=== PATIENT | female | born 1965 | race Caucasian/White ===

== ENCOUNTER 2019-02-07 06:34 | Emergency (ER) | payer MEDICARE, OTHER, SELFPAY ==
[2019-02-07] VITALS (7 sets, daily range): BP systolic 115–136; BP diastolic 57–96; PULSE 83–100; RESP 18–20; TEMP 36.6; O2SAT 96–100; BMI 32.9
--- NOTE | 2019-02-07 06:45 | XR_ITS ---
XR chest AP HISTORY: Posttraumatic pain, contusion/radiation ITS.REASON: fall ORDERING PHYSICIAN: Michael Mckeon MD PATIENT AGE: 53 years COMPARISON: 02/02/2019 FINDINGS: The cardiomediastinal silhouette and pulmonary vascularity are within normal limits. The lungs are clear without infiltrates, suspicious nodules, or pleural effusions. No acute bony abnormalities. IMPRESSION: Negative chest, no acute finding
--- NOTE | 2019-02-07 06:45 | XR_ITS ---
XR pelvis 1-2V HISTORY: Fall with injury and pain ITS.REASON: fall ORDERING PHYSICIAN: Michael Mckeon MD PATIENT AGE: 53 years Comparison: None FINDINGS: No fracture or dislocation is evident. No significant degenerative change. No lytic or blastic change. The SI joints have an unremarkable appearance. Unremarkable soft tissues. There is some heterotopic ossification along the greater trochanter on the right IMPRESSION: No acute finding
--- NOTE | 2019-02-07 06:45 | CT_ITS ---
CT head/brain wo con HISTORY: Posttraumatic pain, head injury with pain, contusion or hematoma with abrasion ITS.REASON: fall ORDERING PHYSICIAN: Michael Mckeon MD PATIENT AGE: 53 years COMPARISON: 02/16/2016 TECHNIQUE: Axial images obtained without contrast. Brain and bone windows reviewed. All CT scans at the facility use one or more dose reduction, viz: automated exposure control, ma/kV adjustment per patient size (including targeted exams where dose is matched to indication, i.e. head), or iterative reconstruction technique. FINDINGS: No midline shift, mass effect, intracranial hemorrhage, hydrocephalus, or extra-axial fluid collection is evident. Mild mucosal thickening involves the maxillary sinuses. Small amount of subcutaneous gas is present in the left vertex with laceration. The calvarium has an unremarkable appearance. No mastoid effusion. No sinus air-fluid levels.. IMPRESSION: No acute cranial findings. Left sided scalp laceration
--- NOTE | 2019-02-07 06:45 | CT_ITS ---
CT CERVICAL SPINE WITHOUT CONTRAST CT RECONSTRUCTIONS HISTORY:Neck pain following injury ORDERING PHYSICIAN: Michael Mckeon MD PATIENT AGE: 53 years COMPARISON: 02/16/2016 Technique: All CT scans at the facility use one or more dose reduction, viz: automated exposure control, ma/kV adjustment per patient size (including targeted exams where dose is matched to indication, i.e. head), or iterative reconstruction technique PROCEDURE: Axial spiral CT scanning performed of the cervical spine beginning at the base of the skull and continuing to the upper T-spine. 3-D multiplanar reconstruction with 3-D manipulation of volumetric data set in image rendering was completed by the radiologist and/or technologist with the supervision of the radiologist on independent workstation. FINDINGS: Normal alignment. No fracture or dislocation. Lung apices are clear. No prevertebral soft tissue swelling. There is some opacification of the right mastoid sinus. Mild degenerative disc disease C5-6 and C6-C7. IMPRESSION: 1. No acute fracture. 2. Right mastoid sinus disease
[2019-02-07 06:52] LABS: Microscopic, Urine URINE MICROSCOPIC (MICROSCOPIC)
--- NOTE | 2019-02-07 06:55 | [facility].EDFALL ---
ED Disposition Clinical Impression: Obesity (BMI 30.0-34.9) Head contusion Qualifiers: Encounter type: initial encounter Contusion of head detail: unspecified part of head Qualified Code(s): S00.93XA - Contusion of unspecified part of head, initial encounter Scalp abrasion Qualifiers: Encounter type: initial encounter Qualified Code(s): S00.01XA - Abrasion of scalp, initial encounter Fall Qualifiers: Encounter type: initial encounter Qualified Code(s): W19.XXXA - Unspecified fall, initial encounter Disposition: Home, Self-Care Condition on Discharge: Fair Instructions: How to Prevent Falls Additional Instructions: resume prev activity Referrals: Provider,Referral, [Referring] - - Critical Care Critical Care Time: No Attestation: On 02/07/19, the high probability of a clinically significant, sudden or life threatening deterioration of the following system(s) required my full and direct attention, intervention and personal management. The time I documented below is in addition to time spent performing reported procedures but includes the following listed in this critical care notation. Medical Decision Making - Medical Records Medical records reviewed: Yes: I reviewed the patient's medical records. - Bill Inquiry Pt receiving controlled substance: No Vital Signs: 02/07/19 06:36 02/07/19 07:28 02/07/19 07:30 Temperature 97.8 F 97.8 F Temperature Source Oral Oral Pulse Rate [Right] 92 H 93 H Respiratory Rate 18 18 Blood Pressure [Right Arm] 115/57 L 115/67 Blood Pressure Mean [Right Arm] 76 83 Blood Pressure Source [Right Arm] Automatic Cuff Blood Pressure Position [Right Arm] Sitting 02 Sat by Pulse Oximetry 98 96 98 Oxygen Delivery Method Room Air Room Air - Lab Data Lab results reviewed: Yes: I reviewed the patient's lab results. Lab Results 02/07/19 06:45: Urine Color Yellow, Urine Appearance Clear, Urine pH 7.5, Ur Specific [place] 1.015, Urine Protein Negative, Urine Glucose (UA) Negative, Urine Ketones Negative, Urine Blood Trace-i, Urine Nitrate Negative, Urine Bilirubin Negative, Urine Urobilinogen 1.0, Ur Leukocyte Esterase Trace, Urine RBC 10-20, Urine WBC 5-10, Ur Squamous Epith Cells 10-20, Urine Bacteria Trace, Urine Mucus Trace 02/07/19 06:45: Urine HCG, Qual Negative 02/07/19 06:45: Urine Opiates Screen Negative, Urine Methadone Screen Negative, Ur Barbituates Screen Negative, Ur Phencyclidine Scrn Negative, Ur Amphetamines Screen Negative, U Benzodiazepines Scrn Negative, Urine Cocaine Screen Negative, U Marijuana (THC) Screen Negative 02/07/19 07:04: WBC 4.9, RBC 3.75 L, Hgb 11.3 L, Hct 36.9 L, MCV 98.4, MCH 30.1, MCHC 30.6 L, RDW 14.1, Plt Count 265, MPV 7.8, Neut % (Auto) 46.6, Lymph % (Auto) 43.7, [place] % (Auto) 7.3, Eos % (Auto) 1.9, Baso % (Auto) 0.4, Neut # (Auto) 2.3, Lymph # (Auto) 2.1, [place] # (Auto) 0.4, Eos # (Auto) 0.1, Baso # (Auto) 0.0 02/07/19 07:04: Sodium 142, Potassium 3.4 L, Chloride 110 H, Carbon Dioxide 21, Anion Gap 14.4, BUN 14, Creatinine 0.85, Estimated Creat Clear 96, Estimated GFR 69, Est GFR ( Amer) 84, Glucose 129 H, Calcium 8.7, Total Bilirubin 0.3, AST 22, ALT 22, Alkaline Phosphatase 143 H, Total Protein 6.1 L, Albumin 2.6 L, Globulin 3.5 H, Albumin/Globulin Ratio 0.7 L Result diagrams: 02/07/19 07:04 02/07/19 07:04 Orders (Tests/Meds): ORDERS Category Date Time Status CT cervical spine wo con Stat Cat Scan 02/07/19 06:45 Taken XR chest AP Stat Exams 02/07/19 06:45 Taken XR pelvis 1-2V Stat Exams 02/07/19 06:45 Taken - Radiology Data #1 Image(s): Chest, Pelvis Image Reviewed: Yes I reviewed the patient's radiology image Preliminary Findings: No Fracture Seen - CT Data CT Scan: Head, C-Spine Time Received: 07:[address] Reviewed: Yes: I have viewed the radiologist's interpretation Preliminary Findings: No Fracture Seen Fall HPI - General Chief Complaint: Fall Stated Complaint: fall Time Seen by Pro
[2019-02-07 06:56] LABS: Appearance,Urine CLEAR (Clear); Bilirubin,Urine Negative (Negative); Blood, Urine TRACE-I (Negative); Color,Urine YELLOW (Yellow); Glucose,Urine (UA) Negative (Negative); Ketones,Urine Negative (Negative); Leukocyte Esterase,Urine TRACE (Negative); Nitrate,Urine Negative (Negative); PH,Urine 7.5 (5.0-8.5); Protein,Urine Negative (Negative); Specific Gravity, Urine 1.015 (1.005-1.030)
[2019-02-07 07:02] LABS: Amphetamine/Metha Screen,Urine Negative ng/mL (<1000); Barbiturates Screen,Urine Negative ng/mL (<200); Benzodiazepines Screen,Urine Negative ng/mL (<200); Cannabinoid Screen,Urine Negative ng/mL (<50); Cocaine Screen,Urine Negative ng/mL (<300); Methadone Screen,Urine Negative ng/mL (<300); Opiate Screen,Urine Negative ng/mL (<300); Phencyclidine Screen,Urine Negative ng/mL (<25)
[2019-02-07 07:06] LABS: Bacteria,Urine Trace /lpf; Mucus,Urine Trace /lpf
--- NOTE | 2019-02-07 07:09 | PC.NURSE ---
pt gone to ct
[2019-02-07 07:18] LABS: Basophils % 0.4 % (0.1-2.0); Eosinophils # 0.1 K/mm3 (0.0-0.4); Eosinophils % 1.9 % (0.1-12.0); Hematocrit 36.9 % (37.0-47.0); Hemoglobin 11.3 g/dL (12.2-16.2); Lymphocytes # 2.1 K/mm3 (0.7-4.5); Lymphocytes % 43.7 % (10-50); Mean Corpuscular HGB Conc 30.6 g/dL (31.8-35.4); Mean Corpuscular Hemoglobin 30.1 pg (27.0-31.2); Mean Corpuscular Volume 98.4 fl (81-99); Mean Platelet Volume 7.8 fl (7.4-10.4); Monocytes # 0.4 K/mm3 (0.1-1.0); Monocytes % 7.3 % (1.7-9.3); Neutrophils # 2.3 K/mm3 (1.8-7.8); Neutrophils % 46.6 % (37.0-80.0); Platelet Count 265 K/mm3 (142-424); Red Blood Count 3.75 M/mm3 (4.20-5.40); Red Cell Distribution Width 14.1 % (11.5-17.5); White Blood Count 4.9 K/mm3 (4.8-10.8)
[2019-02-07 07:19] LABS: Urine Pregnancy, HCG Qual. Negative (Negative)
[2019-02-07 07:24] LABS: Alanine Aminotransferase 22 U/L (12-78); Albumin Level 2.6 gm/dL (3.4-5.0); Albumin/Globulin Ratio 0.7 (1.1-1.8); Alkaline Phosphatase 143 U/L (46-116); Anion Gap 14.4 mEq/L (5-15); Aspartate Amino Transferase 22 U/L (15-37); Bilirubin,Total 0.3 mg/dL (0.2-1.0); Blood Urea Nitrogen 14 mg/dL (7-18); Calcium 8.7 mg/dL (8.5-10.1); Carbon Dioxide 21 mmol/L (21.0-32.0); Chloride 110 mmol/L (98-107); Creatinine Clearance Estimated 96 mL/min (50-200); Creatinine,Serum 0.85 mg/dL (0.55-1.02); Estimated Glomerular Filt Rate 69 ml/min (>60); GFR (African American) 84 ML/MIN (>60); Globulin 3.5 gm/dl (1.3-3.2); Glucose 129 mg/dL (74-106); Potassium 3.4 mmoL/L (3.5-5.1); Sodium 142 mmol/L (136-145); Total Protein,Serum 6.1 gm/dL (6.4-8.2)
--- NOTE | 2019-02-07 07:47 | PC.NURSE ---
report called to [facility]. notified we are ready for her return
--- NOTE | 2019-02-07 08:33 | PC.NURSE ---
pt changed her mind, wanted a breakfast tray. dietary notified. received tray. set up per dietary staff
--- NOTE | 2019-02-07 08:34 | PC.NURSE ---
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
== END 2019-02-07 09:52 | disposition home or self-care (01) ==
PROVIDERS: Emergency Provider Emergency Medicine; PCP Emergency Medicine
DX: S00.93XA Contusion of unspecified part of head, initial encounter (principal); S00.01XA Abrasion of scalp, initial encounter; W06.XXXA Fall from bed, initial encounter; Y92.193 Bedroom in other specified residential institution as the place of occurrence of the external cause; E66.9 Obesity, unspecified; Z68.30 Body mass index [BMI] 30.0-30.9, adult; Z88.5 Allergy status to narcotic agent; Z79.899 Other long term (current) drug therapy
CPT/HCPCS: 70450; 71045; 72125; 72170; 80053; 80305; 81001; 81025; 85025; 99284